=== PATIENT | female | born 1945 | race Caucasian/White ===

== ENCOUNTER 2016-03-30 08:00 | Emergency (ER) | payer MEDICARE, BC ==
[2016-03-30 08:17] VITALS: BP 114/70
--- NOTE | 2016-03-30 08:32 | UC ---
Skin Complaint HPI - HPI Summary HPI Summary: RASH ALL OVER X 1 DAY. , + ITCHY , NO COUGH, NO SOB AND NO SWOLLEN THROAT WAS PLACED ON AUGMENTIN AND TESSELON ABOUT 10 DAYS AGO - History of Current Complaint Chief Complaint: UCRash Time Seen by Provider: 03/30/16 08:07 Stated Complaint: SKIN COMPLAINT Hx Obtained From: Patient Hx Last Menstrual Period: n/a Onset/Duration: Sudden Onset, Lasting Days - 1, Still Present Timing: Constant Onset Severity: Moderate Current Severity: Moderate Location: Diffuse, Generalized Character: Pruritus, Hives, Redness Aggravating: Other - AUGMENTIN AND COUGH PILLS Alleviating: Nothing Associated Signs & Symptoms: Positive: Rash. Negative: Nausea, Vomiting, Numbness, Weakness, Fever, Chills, Cough, Wheezing, Chest Pain, Throat Tightening - Allergy/Home Medications Allergies/Adverse Reactions: Allergies Allergy/AdvReac Type Severity Reaction Status Date / Time seasonal/environmental? Allergy Congestion Uncoded 03/30/16 08:17 Home Medications: Home Medications Calcium Chewable 1 tab PO SEE INSTRUCTIONS 03/30/16 [History Confirmed 03/30/16] Multivitamins/Minerals TAB* [Thera M Plus TAB*] 1 tab PO DAILY 03/30/16 [ History Confirmed 03/30/16] Raloxifene (NF) [Evista(NF)] 60 mg PO SEE INSTRUCTIONS 03/30/16 [History Confirmed 03/30/16] Sertraline* [Zoloft*] 25 mg PO BEDTIME 03/30/16 [History Confirmed 03/30/16] Simvastatin [Zocor 40 MG (NF)] 40 mg PO QAM 03/30/16 [History Confirmed 03/30/16 ] Review of Systems Constitutional: Negative Skin: Rash Eyes: Negative ENT: Negative Respiratory: Negative Cardiovascular: Negative Gastrointestinal: Negative All Other Systems Reviewed And Are Negative: Yes PMH/Surg Hx/FS Hx/Imm Hx Previously Healthy: Yes - Surgical History Surgical History: Yes Surgery Procedure, Year, and Place: Hysterectomy 1970 - Family History Known Family History: Negative: Diabetes - Social History Alcohol Use: Occasionally Substance Use Type: None Smoking Status (MU): Former Smoker Physical Exam Triage Information Reviewed: Yes Appearance: Well-Appearing, No Pain Distress, Well-Nourished Vital Signs: Initial Vital Signs Temp 98.9 F 03/30/16 08:04 Pulse 94 03/30/16 08:04 Resp 20 03/30/16 08:04 BP 114/70 03/30/16 08:04 Pulse Ox 100 03/30/16 08:04 Vital Signs Reviewed: Yes Eye Exam: Normal Eyes: Positive: Conjunctiva Clear ENT: Positive: Normal ENT inspection, Hearing grossly normal, Pharynx normal, TMs normal. Negative: Pharyngeal erythema, Nasal congestion, Nasal drainage Neck: Positive: Supple, Nontender, No Lymphadenopathy Respiratory: Positive: Chest non-tender, Lungs clear, Normal breath sounds Cardiovascular: Positive: RRR, No Murmur, Pulses Normal Abdominal Exam: Normal Abdomen Description: Positive: Nontender, Soft Bowel Sounds: Positive: Present Skin: Positive: rashes - GENARALIZED HIVES Course/Dx - Diagnoses Provider Diagnoses: HIVES Discharge - Discharge Plan Condition: Stable Disposition: HOME Prescriptions: Methylprednisolone [Medrol Dosepak 4 MG*] 0 mg PO .SEE MADELYN INSTRUCTION #1 packet Patient Education Materials: Urticaria (ED) Referrals: Florence Hanna MD [Primary Care Provider] - If Needed Additional Instructions: STOP THE AUGMENTIN AND THE COUGH PILLS
== END 2016-03-30 08:45 | disposition home or self-care (01) ==
LOC: UCCORT 08:00
DX: L50.9 Urticaria, unspecified (principal); Z87.891 Personal history of nicotine dependence
CPT/HCPCS: 99202; G0463